=== PATIENT | male | born 1985 | race Caucasian/White ===

== ENCOUNTER 2022-09-03 07:44 | Outpatient (CLI) | payer BC, SELFPAY ==
[2022-09-03 11:49] LABS: Cholesterol* 236 mg/dL (90-199)
[2022-09-03 11:50] LABS: Glucose* 95 mg/dL (60-115); HDL Cholesterol* 75 mg/dL (>=40); LDL Cholesterol Calculated 147 mg/dL (<100); Triglycerides* 70 mg/dL (40-149)
== END 2022-09-03 07:45 | disposition home or self-care (01) ==
LOC: NFLDREF 07:44
PROVIDERS: PCP Family Medicine; Visit Provider Family Medicine
DX: Z00.00 Encounter for general adult medical examination without abnormal findings (principal); Z13.1 Encounter for screening for diabetes mellitus; Z13.6 Encounter for screening for cardiovascular disorders
CPT/HCPCS: 80061; 82947

== ENCOUNTER 2024-08-30 07:30 | Outpatient (CLI) | payer BC, SELFPAY | END 2024-08-30 07:31 | disposition home or self-care (01) | LOC: NFLDREF 09-07 07:33 | PROVIDERS: PCP Family Medicine; Referring Provider Family Medicine; Visit Provider Family Medicine | DX: E78.5 Hyperlipidemia, unspecified (principal); Z12.5 Encounter for screening for malignant neoplasm of prostate | CPT/HCPCS: 80053; 80061; G0103 ==